=== PATIENT | male | born 1985 | race Hispanic/Latino ===

== ENCOUNTER 2024-12-09 16:49 | Emergency (ER) | payer SELFPAY ==
[~2024-12-09] VITALS: Ht 177.8 cm; Wt 117.3 kg
[2024-12-09 18:15] VITALS: PULSE 76; RESP 18; TEMP 98.3; O2SAT 95
== END 2024-12-09 18:15 | disposition home or self-care (01) ==
LOC: FSED 16:57
DX: K92.2 Gastrointestinal hemorrhage, unspecified (principal); K60.2 Anal fissure, unspecified; A63.0 Anogenital (venereal) warts; I10 Essential (primary) hypertension; R53.81 Other malaise; Z11.52 Encounter for screening for COVID-19
CPT/HCPCS: 0223U; 80053; 81003; 82270; 85025; 87400; 99283